=== PATIENT | male | born 1985 | race Caucasian/White ===

== ENCOUNTER 2019-06-18 14:55 | Emergency (ER) | payer OTHER, SELFPAY ==
[2019-06-18 15:08] VITALS: BP 139/88; PULSE 105; RESP 16; TEMP 36.9; O2SAT 97
--- NOTE | 2019-06-18 15:42 | ED.GENADULT ---
HPI - General Adult General Chief complaint: Upper Respiratory Infection Stated complaint: Cold/Flu Time Seen by Provider: 06/18/19 15:42 Source: patient Mode of arrival: ambulatory Limitations: no limitations Related Data Allergies Allergy/AdvReac Type Severity Reaction Status Date / Time rizatriptan Allergy Unknown CARDIAC Verified 06/18/19 15:15 ARREST Review of Systems Review of Systems: Narrative: CONSTITUTIONAL: Denies fever, chills, or sweats. EYES: Denies visual changes, redness, or discharge. ENT: Denies rhinorrhea, congestion, sore throat, or otalgia. CARDIOVASCULAR: Denies chest pain, palpitations, or edema. RESPIRATORY: Denies cough or dyspnea. GASTROINTESTINAL: Denies abdominal pain, nausea, vomiting, or diarrhea. GENITOURINARY: Denies dysuria or hematuria. SKIN: Denies rash or itching. MUSCULOSKELETAL: Denies back pain, joint pain, or myalgia. NEUROLOGIC: Denies headache, numbness, or weakness. PSYCHIATRIC: Denies anxiety or depression. [facility] Social History Social History Second hand tobacco smoke exposure: Yes Alcohol intake: current Comments At the time of my signature I agree with nursing past medical history, surgical, social, and family history. There is no relevant family history pertinent to the presenting complaint. Exam Narrative: Exam Narrative: GENERAL: Well-appearing, well-nourished, and in no acute distress. HEAD: Normocephalic, atraumatic. EYES: PERRLA and EOMI. ENT: Nares clear, no rhinorrhea or epistaxis. Mucous membranes moist. NECK: Supple. No lymphadenopathy CHEST: Clear to auscultation. No respiratory distress. HEART: Regular rate and rhythm. No murmur heard. Normal peripheral pulses. ABDOMEN: Soft, nontender, nondistended, normal active bowel sounds. EXTREMITIES: Normal range of motion. No edema. SKIN: Warm, dry, no rash. NEURO: No focal deficits. Alert and oriented x3. Course Vital Signs Vital signs: Vital Signs Temperature 36.9 C 06/18/19 15:08 Pulse Rate 105 H 06/18/19 15:08 Respiratory Rate 16 06/18/19 15:08 Blood Pressure 139/88 06/18/19 15:08 Pulse Oximetry 97 06/18/19 15:08 Temperature 36.9 C 06/18/19 15:08 Pulse Rate 105 H 06/18/19 15:08 Respiratory Rate 16 06/18/19 15:08 Blood Pressure 139/88 06/18/19 15:08 Pulse Oximetry 97 06/18/19 15:08 Vital signs reviewed. The patient has been informed that they may have pre-hypertension or Hypertension based on a BP reading in the department. I recommend that the patient call the primary care provider listed on their discharge instructions or a physician of their choice this week to arrange follow up for further evaluation of possible pre-hypertension or Hypertension Medical Decision Making Differential Diagnosis Differential Diagnosis: Differential diagnosis: Allergic rhinitis, chronic sinusitis, tonsillitis, acute sinusitis, infectious mononucleosis, seasonal influenza, pertussis, diphtheria, meningococcal disease, viral syndrome, viral bronchitis, RSV. Vital Signs Vital Signs: Vital Signs Temperature 36.9 C 06/18/19 15:08 Pulse Rate 105 H 06/18/19 15:08 Respiratory Rate 16 06/18/19 15:08 Blood Pressure 139/88 06/18/19 15:08 Pulse Oximetry 97 06/18/19 15:08 Temperature 36.9 C 06/18/19 15:08 Pulse Rate 105 H 06/18/19 15:08 Respiratory Rate 16 06/18/19 15:08 Blood Pressure 139/88 06/18/19 15:08 Pulse Oximetry 97 06/18/19 15:08 Lab Data Labs: Influenza A Screen Positive Reference Range: Negative Influenza B Screen Negative Reference Range: Negative Critical Care Time Critical Care Time Critical Care Time: No Discharge Plan Discharge Clinical Impression: Influenza A Patient Disposition: Home, Self-Care Condition: Stable Instructions: Antibiotic Form, Influenza (ED) Additional Instructions: Influenza (the flu) is an infect
== END 2019-06-18 15:55 | disposition home or self-care (01) ==
PROVIDERS: Emergency Provider Nurse Practitioner Family
DX: J10.1 Influenza due to other identified influenza virus with other respiratory manifestations (principal)
CPT/HCPCS: 87804; 99213; G0463

== ENCOUNTER 2023-01-18 15:45 | Emergency (ER) | payer OTHER, SELFPAY ==
[2023-01-18 15:55] VITALS: BP 145/83; PULSE 102; RESP 16; TEMP 37.4; O2SAT 98
--- NOTE | 2023-01-18 16:12 | ED.URI ---
HPI - URI/Sore Throat General Chief Complaint: Upper Respiratory Infection Stated Complaint: Sore Throat/Chest Congestion/Cough Time Seen by Provider: 01/18/23 16:00 Source: patient Mode of arrival: ambulatory Limitations: no limitations History of Present Illness HPI Narrative: Raulito is a 37-year-old male patient presenting to the clinic today with complaints of sore throat, chest congestion, and cough x1 day. He reports his symptoms just started this morning and has progressively got worse. He reports that he has felt like he may have had some chills/fever. Does have a slight productive cough. Any chest pain or shortness of breath but feels as though he has got some chest congestion. MD elicited complaint: cough, sore throat and nasal congestion Related Data Allergies Allergy/AdvReac Type Severity Reaction Status Date / Time rizatriptan Allergy Unknown CARDIAC Verified 06/18/19 15:15 ARREST Review of Systems Review of Systems: Pertinent positives per HPI. Patient denies any fever, chills, rash, headache, visual changes, dizziness, shortness of breath, chest pain, palpitations, nausea, vomiting, diarrhea, constipation, abdominal pain, or any urinary issues. [facility] Social History Social History Second hand tobacco smoke exposure: Yes Alcohol intake: current Comments At the time of my signature, I reviewed and agree with the nursing past medical, surgical, social, and family history. There is no relevant family history pertinent to the patient complaint. Exam Narrative: General: Well-developed,obese, in no apparent distress Head: Normocephalic, atraumatic Eyes: Pupils equally round and reactive to light bilaterally, EOM intact, sclera and conjunctive clear, no discharge, lids normal Ears: TMs intact and congestion, ear canals clear, no drainage, grossly hearing normal. Nose: Nares patent, clear nasal discharge, no inflammation, no sinus tenderness. Mouth: Oral pharynx red without lesions or masses, good dentition, MMM. PND Neck: Supple, trachea midline, no enlargement of anterior or posterior cervical nodes, no thyroid masses or goiter palpable. Cardio: Regular rate and rhythm, s1 and s2 normal, no murmur appreciated. Resp: Clear to auscultation bilaterally, no rhonchi, rales, wheezing or rubs Course Course Emergency Course: Portions of this record may have been created with voice recognition software. Level of Care: Express Care Visit Vital Signs Vital signs: Vital Signs Temperature 37.4 C 01/18/23 15:55 Pulse Rate 102 H 01/18/23 15:55 Respiratory Rate 16 01/18/23 15:55 Blood Pressure 145/83 H 01/18/23 15:55 Pulse Oximetry 98 01/18/23 15:55 Oxygen Delivery Room Air 01/18/23 15:55 Temperature 37.4 C 01/18/23 15:55 Pulse Rate 102 H 01/18/23 15:55 Respiratory Rate 16 01/18/23 15:55 Blood Pressure 145/83 H 01/18/23 15:55 Pulse Oximetry 98 01/18/23 15:55 Oxygen Delivery Room Air 01/18/23 15:55 Vital signs reviewed MDM - URI/Sore Throat MDM Narrative Medical decision making narrative: At the time of visit patient is resting comfortably on exam table. COVID, influenza, and strep test was performed. Influenza and strep test was negative. COVID was positive. Differential Diagnosis Differential diagnosis: Likely sinusitis, viral infection, influenza and pharyngitis Discharge Plan Discharge Clinical Impression: COVID-19 Patient Disposition: Home, Self-Care Condition: Stable Instructions: Antibiotic Form, COVID-19 (Coronavirus Disease 2019) (ED), How to Recover from COVID-19 at Home (ED) Additional Instructions: COVID testing is positive in the clinic today. Will need to isolate for 5 days from onset of symptoms. May return to work January 24, 2023. Recommend wearing a mask for 5 additional days after quarantine. May take DayQuil/NyQuil for cold/flu symptoms Increase flui
== END 2023-01-18 16:36 | disposition home or self-care (01) ==
PROVIDERS: Emergency Provider Nurse Practitioner Family
DX: U07.1 COVID-19 (principal)
CPT/HCPCS: 87081; 87426; 87804; 87880; 99213; C9803; G0463

== ENCOUNTER 2023-08-14 09:23 | Emergency (ER) | payer OTHER, SELFPAY ==
[2023-08-14 09:28] VITALS: BP 138/72; PULSE 82; RESP 20; TEMP 37; O2SAT 82
--- NOTE | 2023-08-14 10:00 | ED.URI ---
HPI - URI/Sore Throat General Chief Complaint: Upper Respiratory Infection Stated Complaint: throat Time Seen by Provider: 08/14/23 09:42 Source: patient, RN notes reviewed and old records reviewed Mode of arrival: ambulatory Limitations: no limitations History of Present Illness HPI Narrative: 37-year-old male to Express Care for complaint of throat pain that started 2 days ago. Patient endorses that his son was swabbed for strep culture 4 days ago and was told yesterday that he is positive for strep throat. patient denies fever, nausea, vomiting, diarrhea, head pain. Patient able tolerate fluids by mouth. Related Data Allergies Allergy/AdvReac Type Severity Reaction Status Date / Time rizatriptan Allergy Unknown CARDIAC Verified 08/14/23 09:45 ARREST Review of Systems Review of Systems: All systems reviewed & are unremarkable except as noted in HPI and below Constitutional: Constitutional: Reports as per HPI, Denies body ache(s), Denies chills, Denies fever(s) and Denies headache(s) Eyes: Eyes: Reports no additional eye complaints ENT: Reports as per HPI, Denies nasal congestion, Denies nasal discharge, Denies sinus pain and Reports sore throat Cardiovascular: Cardiovascular: Reports no additional cardiovascular complaints, Denies chest pain and Denies dyspnea Respiratory: Respiratory: Reports no additional respiratory complaints, Denies cough and Denies dyspnea Gastrointestinal: Gastrointestinal: Reports as per HPI, Denies diarrhea, Denies nausea and Denies vomiting Musculoskeletal: Musculoskeletal: Reports as per HPI, Denies back pain and Denies myalgias Neurologic: Reports system reviewed and no additional complaints, except as documented Psychiatric: Psychiatric: Reports no additional psychiatric complaints PMFSH Social History Social History Second hand tobacco smoke exposure: Yes Alcohol intake: current Comments At the time of my signature, I reviewed and agree with the nursing past medical, surgical, social, and family history. There is no relevant family history pertinent to the patient complaint. Exam Const: General: cooperative, comfortable, no acute distress, alert, tired appearing and well nourished Nutritional Appearance: well nourished Orientation/consciousness: patient oriented x3 Limitations: no limitations HENMT: Head: normal to inspection Ears: external ears normal Face/Nose/Sinus: Normal external nose present, Normal nares present, normal facial exam, No erythema and No edema Face and sinus: normal facial exam, no erythema and no edema Mouth: Yes Normal oral and palatal mucosa present Throat: abnormal tonsil bilateral erythema, exudates and hypertrophy, posterior oropharynx abnormal and postnasal drainage Eyes: General: appearance normal, both eyes and all related structures Neck: Neck: normal visual inspection, full ROM and no meningeal signs Lymphatic: no lymphadenopathy noted and no lymphedema noted Chest: Chest palpation & inspection: normal inspection of the chest Resp: Effort & Inspection: normal respiratory effort and able to speak in complete sentences Auscultation: clear to auscultation bilaterally Cardio: Jugular venous distension: no JVD Rate: regular rate Rhythm: regular rhythm Back/Spine/Pelvis: Cervical Spine: cervical ROM normal Skin: General skin exam: normal color, no rashes or lesions noted and turgor normal Neuro: General: patient oriented x3, gait normal, moves all extremities and no meningeal signs Speech: normal speech Gait exam (Neuro): Normal gait present Extrem: General: normal to inspection, full ROM and capillary refill normal Psych: Appearance: grossly normal and well kempt Course Course Emergency Course: Some parts of this dictation were generated by voice recognition software and may contain typographical and/or grammatical inaccuracies. Level of Care: Express Care Visit
== END 2023-08-14 10:08 | disposition home or self-care (01) ==
PROVIDERS: Emergency Provider Nurse Practitioner Family
DX: J02.0 Streptococcal pharyngitis (principal)
CPT/HCPCS: 87081; 87880; 99213; G0463